=== PATIENT | female | born 1950 | race Caucasian/White ===

== ENCOUNTER 2017-07-05 11:00 | Inpatient (IN) ==
[2017-07-05] MEDS ORDERED: Pantoprazole 80 MG in 0.9 % Sodium Chloride 50 ML IVPB ONE (11:28)
[2017-07-05] MEDS ORDERED: *HR* Morphine 2 MG/ML SYRINGE IVP ONE (11:28)
--- NOTE | 2017-07-05 11:34 | Emergency Department Note ---
Disposition Clinical Impression: Melena, Right leg pain, Generalized weakness GI bleed Qualifiers: GI bleed type/associated pathology: melena Qualified Code(s): K92.1 - Melena Disposition: Admitted As Inpatient Condition: Fair Referrals: Suzy Esquivel [employer] [Primary Care Provider] - Forms: ED Satisfaction Letter GI Bleed HPI - General Chief complaint: ED GI Bleed Stated complaint: blood in stool/tired/pain in right leg Time Seen by Provider: 07/05/17 11:22 Source: patient Limitations: no limitations Nursing Notes Reviewed: Yes Vital Signs Reviewed: Yes - History of Present Illness HPI Narrative: Kandace Gates is a 66-year-old female presents to the emergency department with 3 primary complaints. First is decreased energy, second is bright red blood per rectum, and third is right sided leg pain. Patient has a history of catheterization and stent 3 weeks ago secondary to heart attack. She says her pain started in the right leg which is decidedly negative the From, a day or 2 ago. She is also noticed bright red blood per rectum every time she goes to the bathroom for the last 2 or 3 days. She says she is on an oral blood thinner. She denies fevers or chills. She denies chest pain or short of breath. Pt Subjective Complaint: blood on toilet paper, blood streaked stool Onset (ago): day(s) Consistency: intermittent Severity: none Improves with: nothing Worsens with: nothing Context: anticoagulant use Associated symptoms: Reports: none Treatments Prior to Arrival: none - Related Data Home Medications Medication Instructions Recorded Confirmed Escitalopram [Lexapro] 20 mg PO DAILY 06/15/17 07/05/17 Fluticasone/Salmeterol [Advair 1 puff IH BID 07/05/17 07/05/17 250-50 Diskus] Ranitidine HCl [Heartburn Relief] 150 mg PO DAILY 07/05/17 07/05/17 Previous Rx's Medication Instructions Recorded Aspirin 81 mg PO DAILY #30 tab.chew 06/17/17 Atorvastatin [Lipitor] 40 mg PO HS #30 tablet 06/17/17 Metoprolol XL (24 HR) Succ [Toprol 12.5 mg PO DAILY #15 tab.er.24h 06/17/17 Xl] Nitroglycerin 0.4 mg SL Q5MIN #30 tab.subl 06/17/17 Ticagrelor [Brilinta] 90 mg PO BID #60 tablet 06/17/17 Allergies Allergy/AdvReac Type Severity Reaction Status Date / Time No Known Allergies Allergy Verified 07/05/17 11:08 All systems ED: reviewed and negative except as stated. Constitutional: Reports: as per HPI Eyes: Reports: as per HPI ENT ED: Reports: epistaxis Respiratory: Reports: as per HPI Gastrointestinal: Reports: as per HPI Genitourinary: Reports: as per HPI Musculoskeletal: Reports: as per HPI Integumentary: Reports: as per HPI Neurological: Reports: as per HPI Psychiatric: Reports: as per HPI Past Medical History - Past Medical History Attestation: Yes The following information was validated with the patient. 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 - Social History Smoking Status: Current every day smoker Smokeless Tobacco Status: No Alcohol use: Reports: none Drug use: Reports: none Physical Exam - General Limitations: no limitations General appearance: alert - Head Head exam: atraumatic - Eye Eye exam: Present: normal appearance - ENT ENT exam: normal exam - Neck Neck exam: Present: normal inspection - Chest Chest inspection: Present: normal inspection - Respiratory Respiratory exam: Present: normal lung sounds bilaterally - Cardiovascular Cardiovascular exam: Present: regular rate, normal rhythm - Abdominal Exam Abdominal exam: Present: soft, Non-Tender - Rectal Exam Rectal exam: Present: normal inspection, normal rectal tone, heme (+) stool, black stool. Absent: hemorrhoids, mass, tenderness - Extremities Exam Extremities exam: Present: normal inspection, tenderness, other (H and has tenderness in the anterior henderson of the right leg this reproduces her pain and she does have a bruise on that area. She literally hurts over the areas of bruising. She has no swelling and no indications that there is a DVT there additionally she has distal pulses that are intact femoral pulses that are intact and she appears to have healed extraordinarily well from her catheterization injection point.) - Expanded Lower Extremity Exam Hip/Pelvis exam: Present: normal inspection - Neurological Exam Neurological exam: Present: alert, oriented X3 - Psychiatric Psychiatric exam: Present: normal affect, normal mood - Skin Skin exam: Present: warm, dry, intact Course Vital Signs Temperature 97.9 F 07/05/17 11:10 Pulse Rate 71 07/05/17 11:10 Respiratory Rate 20 07/05/17 11:10 Blood Pressure 103/62 07/05/17 11:10 O2 Sat by Pulse Oximetry 98 07/05/17 11:10 Temperature 97.9 F 07/05/17 11:10 Pulse Rate 58 07/05/17 14:36 Respiratory Rate 16 07/05/17 14:36 Blood Pressure 106/56 07/05/17 14:36 O2 Sat by Pulse Oximetry 94 07/05/17 14:36 Oxygen Delivery Oxygen Delivery Room Air GI Bleed - [facility] Narrative Medical decision making narrative: Patient's stool demonstrated melena. We will do workup for GI bleed including CT scan and start her on pantoprazole with a drip. Will admit to the hospitalist service I once workup is complete for final evaluation and treatment. CT scan revealed diverticulosis without diverticulitis. Laboratory testing shows that she has dropped her blood counts since her last test. She still is not low enough to require transfusion at this time. EKG shows no acute ischemic changes. Spoke to the hospitalist service to start arranging for admission, they requested discussing case with GI and cardiology. Cardiology recommended keeping the patient on Brilinta. GI was contacted and agreed to take the patient directly for scope. She was started on Protonix drip. Her blood pressure remained stable throughout her stay. Patient will be taken directly to the GI lab and then admitted the hospital afterwards. - Lab Data Lab results reviewed: Yes I reviewed the patient's lab results. Result diagrams: 07/05/17 11:52 07/05/17 11:52 Lab Results 07/05/17 07/05/17 07/05/17 Range/Units 11:29 11:52 11:52 WBC 7.0 (4.3-11.1) K/mcL RBC 2.90 L (3.82-4.97) M/mcL Hgb 8.8 L (11.5-15.4) g/dL Hct 26.8 L (35.3-44.9) % MCV 92.4 (83.0-100.0) fL MCH 30.3 (28.0-33.3) pg MCHC 32.8 (31.6-35.5) g/dL RDW 12.7 (11.5-14.5) % Plt Count 500 H (140-400) K/mcL MPV 9.6 (9.4-12.4) fL Immature Gran % 0.4 (0-4) % Seg Neutrophils % 55.3 % Lymphocytes % 31.4 % Monocytes % 10.1 % Eosinophils % 1.7 % Basophils % 1.1 % Neutrophils # 3.9 (1.6-8.9) K/mcL Lymphocytes # 2.2 (0.6-4.6) K/mcL Monocytes # 0.7 (0.0-1.3) K/mcL Eosinophils # 0.1 (0.0-0.6) K/mcL Basophils # 0.1 (0.0-0.2) K/mcL PT 12.0 (9.4-12.1) Seconds INR 1.1 APTT 34.9 (26.0-36.0) Seconds Sodium (136-145) mEq/L Potassium (3.5-5.1) mEq/L Chloride (98-107) mEq/L Carbon Dioxide (23-29) mEq/L BUN (8-23) mg/dL Creatinine (0.60-1.20) mg/dL Est GFR ( Amer) (> 60) Est GFR (Non-Af Amer) (> 60) BUN/Creatinine Ratio (6-26) Glucose (70-105) mg/dL Calculated Osmolality (280-300) Lactic Acid (0.5-2.2) mmol/L Calcium (8.6-10.3) mg/dL Total Bilirubin (0.3-1.0) mg/dL AST (13-39) Units/L ALT (7-52) Units/L Alkaline Phosphatase (34-104) Units/L Troponin I (< 0.04) ng/mL Serum Total Protein (6.4-8.9) g/dL Albumin (3.5-5.7) g/dL Globulin (2.4-3.5) g/dL Albumin/Globulin Ratio (1.1-2.2) Lipase (11-82) Units/L Stool Occult Blood Positive A (Negative) Blood Type Antibody Screen 07/05/17 07/05/17 07/05/17 Range/Units 11:52 11:52 11:52 WBC (4.3-11.1) K/mcL RBC (3.82-4.97) M/mcL Hgb (11.5-15.4) g/dL Hct (35.3-44.9) % MCV (83.0-100.0) fL MCH (28.0-33.3) pg MCHC (31.6-35.5) g/dL RDW (11.5-14.5) % Plt Count (140-400) K/mcL MPV (9.4-12.4) fL Immature Gran % (0-4) % Seg Neutrophils % % Lymphocytes % % Monocytes % % Eosinophils % % Basophils % % Neutrophils # (1.6-8.9) K/mcL Lymphocytes # (0.6-4.6) K/mcL Monocytes # (0.0-1.3) K/mcL Eosinophils # (0.0-0.6) K/mcL Basophils # (0.0-0.2) K/mcL PT (9.4-12.1) Seconds INR APTT (26.0-36.0) Seconds Sodium 130 L (136-145) mEq/L Potassium 4.2 (3.5-5.1) mEq/L Chloride 100 (98-107) mEq/L Carbon Dioxide 25 (23-29) mEq/L BUN 15 (8-23) mg/dL Creatinine 0.66 (0.60-1.20) mg/dL Est GFR ( Amer) > 60 (> 60) Est GFR (Non-Af Amer) > 60 (> 60) BUN/Creatinine Ratio 23 (6-26) Glucose 96 (70-105) mg/dL Calculated Osmolality 271 L (280-300) Lactic Acid 0.9 (0.5-2.2) mmol/L Calcium 8.7 (8.6-10.3) mg/dL Total Bilirubin 0.3 (0.3-1.0) mg/dL AST 12 L (13-39) Units/L ALT 9 (7-52) Units/L Alkaline Phosphatase 188 H (34-104) Units/L Troponin I < 0.03 (< 0.04) ng/mL Serum Total Protein 6.7 (6.4-8.9) g/dL Albumin 3.6 (3.5-5.7) g/dL Globulin 3.1 (2.4-3.5) g/dL Albumin/Globulin Ratio 1.2 (1.1-2.2) Lipase 14 (11-82) Units/L Stool Occult Blood (Negative) Blood Type Antibody Screen 07/05/17 Range/Units 11:52 WBC (4.3-11.1) K/mcL RBC (3.82-4.97) M/mcL Hgb (11.5-15.4) g/dL Hct (35.3-44.9) % MCV (83.0-100.0) fL MCH (28.0-33.3) pg MCHC (31.6-35.5) g/dL RDW (11.5-14.5) % Plt Count (140-400) K/mcL MPV (9.4-12.4) fL Immature Gran % (0-4) % Seg Neutrophils % % Lymphocytes % % Monocytes % % Eosinophils % % Basophils % % Neutrophils # (1.6-8.9) K/mcL Lymphocytes # (0.6-4.6) K/mcL Monocytes # (0.0-1.3) K/mcL Eosinophils # (0.0-0.6) K/mcL Basophils # (0.0-0.2) K/mcL PT (9.4-12.1) Seconds INR APTT (26.0-36.0) Seconds Sodium (136-145) mEq/L Potassium (3.5-5.1) mEq/L Chloride (98-107) mEq/L Carbon Dioxide (23-29) mEq/L BUN (8-23) mg/dL Creatinine (0.60-1.20) mg/dL Est GFR ( Amer) (> 60) Est GFR (Non-Af Amer) (> 60) BUN/Creatinine Ratio (6-26) Glucose (70-105) mg/dL Calculated Osmolality (280-300) Lactic Acid (0.5-2.2) mmol/L Calcium (8.6-10.3) mg/dL Total Bilirubin (0.3-1.0) mg/dL AST (13-39) Units/L ALT (7-52) Units/L Alkaline Phosphatase (34-104) Units/L Troponin I (< 0.04) ng/mL Serum Total Protein (6.4-8.9) g/dL Albumin (3.5-5.7) g/dL Globulin (2.4-3.5) g/dL Albumin/Globulin Ratio (1.1-2.2) Lipase (11-82) Units/L Stool Occult Blood (Negative) Blood Type A POSITIVE Antibody Screen NEGATIVE - Radiology Data Radiology results reviewed: Yes I reviewed the patient's radiology results. - EKG Data EKG attestation: Yes I reviewed and interpreted this EKG. EKG shows normal: sinus rhythm Rate: normal Rhythm: NSR When compared to previous EKG there are: changes noted (Only change that is appreciably noted is an inverted T-wave in lead 3. Remainder of EKG when compared with an EKG from June 15 of this year is essentially unremarkable. I do not see any ST segment elevation or depression that is overly concerning. Additionally this changes not necessarily surprising considering that she just had a catheterization.), other Interpretation: no acute changes Critical Care Time Critical Care Time: Yes Total Critical Care Time: 35 Attestation: Critical care time 35 minutes managing patient's GI bleed.
[2017-07-05] MEDS ORDERED: Pantoprazole 40 MG in 0.9 % Sodium Chloride Mini Bag 100 ML IVC SCH (11:45)
[2017-07-05 12:02] LABS: Basophils # 0.1 K/mcL (0.0-0.2); Basophils % 1.1 %; Eosinophils # 0.1 K/mcL (0.0-0.6); Eosinophils % 1.7 %; Hematocrit 26.8 % (35.3-44.9); Hemoglobin 8.8 g/dL (11.5-15.4); Immature Granulocytes % 0.4 % (0-4); Lymphocytes # 2.2 K/mcL (0.6-4.6); Lymphocytes % 31.4 %; Mean Corpuscular HGB Conc 32.8 g/dL (31.6-35.5); Mean Corpuscular Hemoglobin 30.3 pg (28.0-33.3); Mean Corpuscular Volume 92.4 fL (83.0-100.0); Mean Platelet Volume 9.6 fL (9.4-12.4); Monocytes # 0.7 K/mcL (0.0-1.3); Monocytes % 10.1 %; Neutrophils # 3.9 K/mcL (1.6-8.9); Platelet Count 500 K/mcL (140-400); Red Cell Distribution Width 12.7 % (11.5-14.5); Segmented Neutrophils % 55.3 %
[2017-07-05 12:06] LABS: INR 1.1
[2017-07-05 12:08] LABS: Activated Partial Thrombo Time 34.9 Seconds (26.0-36.0)
[2017-07-05 12:20] LABS: Alanine Aminotransferase 9 Units/L (7-52); Albumin 3.6 g/dL (3.5-5.7); Albumin/Globulin Ratio 1.2 (1.1-2.2); Alkaline Phosphatase 188 Units/L (34-104); Aspartate Amino Transferase 12 Units/L (13-39); BUN/Creatinine Ratio 23 (6-26); Bilirubin,Total 0.3 mg/dL (0.3-1.0); Blood Urea Nitrogen 15 mg/dL (8-23); Calcium 8.7 mg/dL (8.6-10.3); Carbon Dioxide 25 mEq/L (23-29); Chloride 100 mEq/L (98-107); Globulin 3.1 g/dL (2.4-3.5); Glucose 96 mg/dL (70-105); Lipase 14 Units/L (11-82); Osmolality,Calculated 271 (280-300); Potassium 4.2 mEq/L (3.5-5.1); Sodium 130 mEq/L (136-145); Total Protein 6.7 g/dL (6.4-8.9); eGFR For African Americans > 60 (> 60); eGFR For Non-African Americans > 60 (> 60)
[2017-07-05] MEDS: Pantoprazole 80 MG in 0.9 % Sodium Chloride 250 ML IVC SCH (12:35)
--- NOTE | 2017-07-05 14:54 | Anesthesia Evaluation PreOp ---
Date of Encounter: 07/05/17 Time of Encounter: 14:52 - Past History Planned Operation: EGD Cardiac History: HTN, Cardiac Stent (3 weeks ago) Pulmonary History: Smoker (1.5ppd x 35 Years) THIRD HELPER History: Denies Any Significant HX Other Medical History: Denies Any Significant HX Anesthesia History: Past Anesthesia : No Alcohol Use: none Drug use: none Medications and Allergies Escitalopram [Lexapro] 20 mg PO DAILY 06/15/17 [History] Aspirin 81 mg PO DAILY #30 tab.chew 06/17/17 [Rx] Atorvastatin [Lipitor] 40 mg PO HS #30 tablet 06/17/17 [Rx] Metoprolol XL (24 HR) Succ [Toprol Xl] 12.5 mg PO DAILY #15 tab.er.24h 06/17/17 [Rx] Nitroglycerin 0.4 mg SL Q5MIN #30 tab.subl 06/17/17 [Rx] Ticagrelor [Brilinta] 90 mg PO BID #60 tablet 06/17/17 [Rx] Fluticasone/Salmeterol [Advair 250-50 Diskus] 1 puff IH BID 07/05/17 [History] Ranitidine HCl [Heartburn Relief] 150 mg PO DAILY 07/05/17 [History] 3 Allergy/AdvReac Type Severity Reaction Status Date / Time No Known Allergies Allergy Verified 07/05/17 11:08 - Meds/Allergy Pre-op Review Medications Reviewed: Yes Allergies Reviewed: Yes Beta Blockers on Current Med List: Yes If Beta Blockers taken, Date/Time (Last Dose taken): 09:00 07/05/2017 Anesthesia Results - Labs 07/05/17 11:52 07/05/17 11:52 Echocardiogram Name: Kandace Gates Date of Study: 06/16/2017 EV/EV echocardiogram Impressions: LVEF 60%. Indeterminate diastolic function. Equivocal E/A, abnormal TD velocity. Normal right ventricular structure and function. Mild mitral regurgitation. Mild tricuspid regurgitation. Mild pulmonary hypertension. There is a trivial pericardial effusion present located along the inferior border of the RV. No tamponade. LEFT HEART CATH PCI of Acute CA Indications: STEMI Impressions: There is severe one vessel coronary artery disease. The left ventricle is normal and has normal contractility EF 55% Patient had successful PTCA/Drug-Eluting Stent placement in the proximal and mid RCA. - Imaging EKG: report reviewed (SINUS RHYTHM WITH SINUS ARRHYTHMIA MODERATE ST DEPRESSION) Anesthesia Exam O2 Sat Height 1.63 m Weight 59.148 kg O2 Sat by Pulse Oximetry 94 O2 Sat by Pulse Oximetry 95 O2 Sat by Pulse Oximetry 98 Vital Signs Temp Pulse Resp BP Pulse Ox 97.9 F 71 20 103/62 98 07/05/17 11:10 07/05/17 11:10 07/05/17 11:10 07/05/17 11:10 07/05/17 11:10 Height: 5'4'' Weight: 130# NPO (# of Hours): > 8 hrs Pain Scale: 0 Pain Scale Used: Numeric (1 - 10) - HEENT Pupil (Motor): Pupils equal, EOMI Mallampati: II Teeth: Missing Denture Type: Upper: Complete Oral Opening: Greater than 3 - THIRD HELPER LOC: Oriented THIRD HELPER Motor: Normal RUE, Normal LUE, Normal RLE, Normal LLE, Normal Face THIRD HELPER Sensory: Normal: RUE, LUE, RLE, LLE, Face - Cardiac Rhythm: Regular Murmur: None JVD: No Carotid Bruit: No - Pulmonary Breath Sounds: bilateral Clear Respiratory Effort: Symmetrical Anesthesia Assess/Plan ASA Score: 3 Modified Zaki Scale for Level of Consciousness: Cooperative, oriented, and tranquil Anesthetic Plan: MAC Autologous Blood: Yes Monitoring Plan: Standard Monitors Recovery Plan: Other
--- NOTE | 2017-07-05 14:58 | Gastroenterology Consult Note ---
Date of Encounter: 07/05/17 Time of Encounter: 14:30 - Assessment and plan (1) Rectal bleeding Current Visit: Yes Status: Acute Assessment and plan: In This patient with the recent myocardial infarction, which status post PCI 2 weeks ago on aspirin and Brilinta. Denies any epigastric pain. Bleeding is suspicious for a upper GI source but will do an EGD and if negative then she will need a colonoscopy. Meanwhile we will follow H&H. - Time Spent With Patient Total time spent is greater than 50% in coordination of care (as documented) at patient's floor/unit and/or counseling patient: GI History of Present Illness - Consult Narrative Reason for consult: GI bleed History of present illness: Ms. Gates is a 66 year old female with the recent VA status post cardiac catheter with stenting. Patient had Inferior ST elevation VA; S/P Proximal and Distal RCA stenting. On ASA, received loading dose 180 mg Brilinta hortensia-PCI, on maintenance dose of Brilinta 90mg daily along with aspirin daily. Per patient she notice red blood per rectum many episode on she was supposed to have a CBC done next day as outpatient but could not be done and yesterday she noticed 1 more episode of bleeding per rectum since then no more bleeding per rectum .Today she felt very weak and tired and came to the ER and was found to have a low hemoglobin. Denies any abdominal pain no chest pain or shortness of breath Past Med Surg Social Fam HX - Past Medical History Medical history: hypertension, myocardial infarction Psychiatric history: anxiety - Social History Smoking Status: Current every day smoker Smokeless Tobacco Status: No Alcohol use: none Drug use: none Review of Systems: GI: as per [place] GENERAL: denies fever, has some chills but per the patient she always feel cold EYES: denies yellow discoloration ENT: denies pain with swallowing or difficulty swallowing CARDIO: denies chest pain, palpitations RESP: No Shortness of breath with exertion : denies change in color of urine NEURO: No focal weakness but did had generalized weakness on presentation HEME: Denies any bruising MS: denies joint pain, joint swelling or back pain. DERM: denies rash or itching PSYCH: Denies history of anxiety or depression - Constitutional Vitals: Temp Pulse Resp BP Pulse Ox 97.9 F 58 16 106/56 94 07/05/17 11:10 07/05/17 14:36 07/05/17 14:36 07/05/17 14:36 07/05/17 14:36 - Head Head exam: Present: atraumatic - Eye Eye exam: Present: sclera anicteric - Respiratory Additional comments: Bilateral good air entry did had some mild wheezing - Cardiovascular Cardiovascular exam: Present: +S1, +S2 Additional comments: Rhythm is regular - GI/Abdominal Additional comments: Soft, No focal tenderness no guarding or rigidity - Extremities Exam Additional comments: No clubbing cyanosis or edema. - Neurological Exam Neurological exam: Present: oriented X3 - Skin Skin exam: Present: dry, warm Results - Labs CBC & Chem 7: 07/05/17 11:52 07/05/17 11:52 Labs: Last Result Calcium 8.7 mg/dL (8.6-10.3) 07/05/17 11:52 Troponin I < 0.03 ng/mL (< 0.04) 07/05/17 11:52 Stool Occult Blood Positive (Negative) A 07/05/17 11:29 Entire Visit Hgb 8.8 g/dL (11.5-15.4) L 07/05/17 11:52 Hct 26.8 % (35.3-44.9) L 07/05/17 11:52 PT 12.0 Seconds (9.4-12.1) 07/05/17 11:52 Total Bilirubin 0.3 mg/dL (0.3-1.0) 07/05/17 11:52 AST 12 Units/L (13-39) L 07/05/17 11:52 ALT 9 Units/L (7-52) 07/05/17 11:52 Lipase 14 Units/L (11-82) 07/05/17 11:52 - ABG ABG results: PT/INR, D-dimer PT 12.0 Seconds (9.4-12.1) 07/05/17 11:52 - Impressions Impressions Chest X-Ray 07/05/17 11:28 IMPRESSION: Stable portable study. D/ / Sarahi Harmon Cha, MD / Sarahi Harmon Cha, MD Interpreting Provider: Sarahi Harmon Cha, MD Abdomen/Pelvis CT 07/05/17 11:30 IMPRESSION: 1. No acute process in the abdomen or pelvis. 2. Moderate sigmoid diverticulosis without acute diverticulitis. 3. Atherosclerotic and ectatic abdominal aorta. 4. Small pericardial effusion and/or pericardial thickening. D/ / 07/05/2017 13:00:21 Jeanine Tan / yohan Interpreting Provider: Jeanine Tan Consult Discharge Plan - Plan Referrals: Suzy Esquivel, PLANNING CONSULTANT [Primary Care Provider] -
--- NOTE | 2017-07-05 15:05 | Internal Med History&Physical ---
Date of Encounter: 07/05/17 Time of Encounter: 15:04 Assessment and Plan (1) GI bleed Status: Acute ASSESSMENT: - GI bleeding DD *Gastroenteritis *Gastritis *PUD *Esophageal varices *IBD PLAN: - IVF - NPO - H/H now and q 6 hr - Type and screen 2 U PRBC - Protonix 40 mg IV QD/BID - GI consult-> EGD/Colonoscopy - O2 to keep SpO2 > 92% - CBCD, BMP, INR/PTT in AM - Compression stocking BLE for DVT prophylaxis Qualifiers: GI bleed type/associated pathology: unspecified gastrointestinal hemorrhage type Qualified Code(s): K92.2 - Gastrointestinal hemorrhage, unspecified (2) Hypertension Status: Acute We will continue home medication Qualifiers: Hypertension type: essential hypertension Qualified Code(s): I10 - Essential (primary) hypertension (3) Hyperlipidemia Status: Acute We will continue home medication, obtain fasting lipid profile in a.m. Qualifiers: Hyperlipidemia type: unspecified Qualified Code(s): E78.5 - Hyperlipidemia , unspecified (4) CAD (coronary artery disease) Status: Acute We will continue home meds, trend cardiac enzymes for possible demand ischemia ischemia, cardiology was contacted and they recommended to continue blood thinner despite of the GI bleeding givings a recent history of angiogram angioplasty and stent placement. Qualifiers: Coronary Disease-Associated Artery/Lesion type: [place] artery [place] vs. transplanted heart: [place] heart Associated angina: without angina Qualified Code(s): I25.10 - Atherosclerotic heart disease of [place] coronary artery without angina pectoris (5) Generalized weakness Status: Acute PT , OT (6) Tobacco abuse Status: Acute was counselled (7) DVT prophylaxis Status: Acute Internal Medicine - H&P: HPI Chief complaint: GI bleed Admitted From: Home Plans for Post Hospital Care: Home History of present illness: Ms. Gates is a 66 year old female with the recent AK status post cardiac catheter with stenting. Patient had Inferior ST elevation AK; S/P Proximal and Distal RCA stenting. On ASA, received loading dose 180 mg Brilinta hortensia-PCI, on maintenance dose of Brilinta 90mg daily along with aspirin daily. Per patient she notice red blood per rectum many episode on she was supposed to have a CBC done next day as outpatient but could not be done and yesterday she noticed 1 more episode of bleeding per rectum since then no more bleeding per rectum .Today she felt very weak and tired and came to the ER and was found to have a low hemoglobin. Denies any abdominal pain no chest pain or shortness of breath Past Med Surg Social Fam HX - Past Medical History Medical history: hypertension, myocardial infarction Psychiatric history: anxiety - Social History Smoking Status: Current every day smoker Smokeless Tobacco Status: No Alcohol use: none Drug use: none Internal Medicine - H&P: Meds Escitalopram [Lexapro] 20 mg PO DAILY 06/15/17 [History] Aspirin 81 mg PO DAILY #30 tab.chew 06/17/17 [Rx] Atorvastatin [Lipitor] 40 mg PO HS #30 tablet 06/17/17 [Rx] Metoprolol XL (24 HR) Succ [Toprol Xl] 12.5 mg PO DAILY #15 tab.er.24h 06/17/17 [Rx] Nitroglycerin 0.4 mg SL Q5MIN #30 tab.subl 06/17/17 [Rx] Ticagrelor [Brilinta] 90 mg PO BID #60 tablet 06/17/17 [Rx] Fluticasone/Salmeterol [Advair 250-50 Diskus] 1 puff IH BID 07/05/17 [History] Ranitidine HCl [Heartburn Relief] 150 mg PO DAILY 07/05/17 [History] Omeprazole [PriLOSEC] 40 mg PO DAILY #30 cap 07/08/17 [Rx] Pantoprazole [Protonix] 40 mg IVP Q12HR vial 07/08/17 [Rx] 3 Allergy/AdvReac Type Severity Reaction Status Date / Time No Known Allergies Allergy Verified 07/05/17 11:08 All Systems PM: A 10-system review of systems was performed and is negative for pertinent findings except as documented above in the HPI. - Constitutional Constitutional: weakness, no chills, no fever(s), no night sweats - Cardiovascular Cardiovascular ROS IM: no chest pain, no diaphoresis, no dyspnea, no lightheadedness, no palpitations, no syncope - Respiratory Respiratory: no cough, no dyspnea, no wheezing, no excessive phlegm production - Gastrointestinal Gastrointestinal: hematochezia, melena, no abdominal pain, no diarrhea, no hematemesis, no nausea, no vomiting - Neurological Neurological ROS: no confusion, no convulsions, no focal weakness, no numbness, no tingling, no tremor(s) - Constitutional Vitals: Temp Pulse Resp BP Pulse Ox 97.9 F 58 16 106/56 94 07/05/17 11:10 07/05/17 14:36 07/05/17 14:36 07/05/17 14:36 07/05/17 14:36 Internal Med - H&P Results - Labs CBC & Chem 7: 07/08/17 06:13 07/08/17 06:13 Labs: Short CBC 07/05/17 Range/Units 11:52 WBC 7.0 (4.3-11.1) K/mcL Hgb 8.8 L (11.5-15.4) g/dL Hct 26.8 L (35.3-44.9) % Plt Count 500 H (140-400) K/mcL Neutrophils # 3.9 (1.6-8.9) K/mcL BMP 07/05/17 11:52 Sodium 130 L Potassium 4.2 Chloride 100 Carbon Dioxide 25 BUN 15 Creatinine 0.66 Glucose 96 Calcium 8.7 Cardiac Enzymes 07/05/17 Range/Units 11:52 Troponin I < 0.03 (< 0.04) ng/mL Liver Function 07/05/17 Range/Units 11:52 Total Bilirubin 0.3 (0.3-1.0) mg/dL AST 12 L (13-39) Units/L ALT 9 (7-52) Units/L Alkaline Phosphatase 188 H (34-104) Units/L Albumin 3.6 (3.5-5.7) g/dL - Impressions ITS Impressions Chest X-Ray 07/05/17 11:28 IMPRESSION: Stable portable study. D/ / Sarahi Harmon Cha, MD / Sarahi Harmon Cha, MD Interpreting Provider: Sarahi Harmon Cha, MD Abdomen/Pelvis CT 07/05/17 11:30 IMPRESSION: 1. No acute process in the abdomen or pelvis. 2. Moderate sigmoid diverticulosis without acute diverticulitis. 3. Atherosclerotic and ectatic abdominal aorta. 4. Small pericardial effusion and/or pericardial thickening. D/ /05/2017 13:00:21 Jeanine Tan / yohan Interpreting Provider: Jeanine Tan - Attending Attestation I personally and independently interviewed and examined the patient, and I reviewed the patient's medical record. I am in agreement with the residents assessment and proposed treatment plan. I discussed my findings and recommendation with the patient and answer his questions. The patient's medical records were edited to accurately reflect this encounter.
[2017-07-05] MEDS ORDERED: *HR* Propofol 200 MG/20 ML VIAL IVP ONE (15:13)
[2017-07-05] MEDS ORDERED: Ringers Solution, Lactated 1,000 ML IVC SCH (15:15)
[2017-07-05] MEDS ORDERED: SODIUM CHLORIDE/NAHCO3/KCL/PEG 4,000 ML SOLN.RECON PO ONE (15:31)
--- NOTE | 2017-07-05 15:44 | Anesthesia Evaluation Post Op ---
Date of Encounter: 07/05/17 Time of Encounter: 15:43 - Vital Signs Vital Signs: Vital Signs/O2 Sat, Most Current Temp Pulse Resp BP Pulse Ox 98.6 F 60 16 990/54 100 07/05/21 15:35 07/05/17 15:35 07/05/17 15:35 07/05/17 15:35 07/05/17 15:35 - Lungs Lungs: Clear Ascult./Percussion - Airway Airway: Non-obstructed - Cardiovascular Regular Rate - Mental Status Mental Status: Alert & Oriented, Answers Appropriately - Pain Pain Scale: 0 Pain Scale used: Numeric (1 - 10) - Nausea Vomiting Nausea Vomiting: Not Present - Hydration Hydration: NPO, Has not voided - Discharge PostOp Status: Transfer Patient to floor
[2017-07-05] MEDS: *HR* Ticagrelor 90 MG TABLET PO SCH (21:17)
[2017-07-05 22:51] LABS: Basophils % 0.5 %; Eosinophils # 0.1 K/mcL (0.0-0.6); Eosinophils % 1.7 %; Hematocrit 26.3 % (35.3-44.9); Hemoglobin 8.5 g/dL (11.5-15.4); Immature Granulocytes % 0.5 % (0-4); Lymphocytes # 2.9 K/mcL (0.6-4.6); Lymphocytes % 35.7 %; Mean Corpuscular HGB Conc 32.3 g/dL (31.6-35.5); Mean Corpuscular Hemoglobin 30.4 pg (28.0-33.3); Mean Corpuscular Volume 93.9 fL (83.0-100.0); Mean Platelet Volume 9.5 fL (9.4-12.4); Monocytes # 0.4 K/mcL (0.0-1.3); Monocytes % 5.2 %; Neutrophils # 4.5 K/mcL (1.6-8.9); Platelet Count 472 K/mcL (140-400); Red Cell Distribution Width 12.5 % (11.5-14.5); Segmented Neutrophils % 56.4 %
[2017-07-06] MEDS: Pantoprazole 80 MG in 0.9 % Sodium Chloride 250 ML IVC SCH ×3 (00:10→14:03)
[2017-07-06] MEDS ORDERED: Acetaminophen 325 MG TABLET PO PRN (00:20)
[2017-07-06] MEDS: *HR* OxyCODONE Immed Rel 5 MG TABLET PO PRN ×2 (00:33→11:05)
[2017-07-06 05:35] LABS: Basophils # 0.1 K/mcL (0.0-0.2); Basophils % 0.8 %; Eosinophils # 0.1 K/mcL (0.0-0.6); Eosinophils % 1.8 %; Hematocrit 24.6 % (35.3-44.9); Hemoglobin 7.8 g/dL (11.5-15.4); Immature Granulocytes % 0.5 % (0-4); Lymphocytes # 2.2 K/mcL (0.6-4.6); Lymphocytes % 28.5 %; Mean Corpuscular HGB Conc 31.7 g/dL (31.6-35.5); Mean Corpuscular Hemoglobin 29.7 pg (28.0-33.3); Mean Corpuscular Volume 93.5 fL (83.0-100.0); Monocytes # 0.7 K/mcL (0.0-1.3); Monocytes % 8.5 %; Neutrophils # 4.6 K/mcL (1.6-8.9); Platelet Count 451 K/mcL (140-400); Red Blood Count 2.63 M/mcL (3.82-4.97); Red Cell Distribution Width 12.6 % (11.5-14.5); Segmented Neutrophils % 59.9 %
[2017-07-06 05:38] LABS: INR 1.1; Prothrombin Time 11.9 Seconds (9.4-12.1)
[2017-07-06 05:41] LABS: Activated Partial Thrombo Time 32.8 Seconds (26.0-36.0)
[2017-07-06] MEDS ORDERED: Propofol 500 MG/50 ML INFUS..BTL ONE (07:29)
[2017-07-06] MEDS ORDERED: Simethicone 40 MG/0.6 ML MLS IR ONE (07:33)
[2017-07-06] MEDS ORDERED: Lidocaine -MPF 2% 2 ML VIAL ONE (07:34)
[2017-07-06] MEDS ORDERED: *HR* Phenylephrine 10 MG/ML VIAL ONE (08:28)
[2017-07-06] MEDS ORDERED: NON-FORMULARY MEDICATION 1 EACH EACH (Ranitidine Hcl [Heartburn Relief] 150 MG) PO SCH (09:00)
[2017-07-06] MEDS: Metoprolol XL (24 HR) Succ 25 MG TAB.ER.24H PO SCH (09:17)
[2017-07-06] MEDS: *HR* Ticagrelor 90 MG TABLET PO SCH ×2 (09:17→20:17)
[2017-07-06] MEDS: Aspirin 81 MG TAB.CHEW PO SCH (09:17)
--- NOTE | 2017-07-06 10:02 | Internal Med Progress Note ---
Date of Encounter: 07/06/17 Time of Encounter: 09:58 - Assessment and plan (1) GI bleed Current Visit: Yes Status: Acute Assessment and plan: EGD done today, GI following, appreciate recommendations. Cardiology consulted in regards to DAPT use in patient since she is having s/s of GIB but is also high risk for MN since she had one 3 weeks ago. Will trend H&H and transfuse as needed, continue protonix drip. Awaiting EGD results. Qualifiers: GI bleed type/associated pathology: unspecified gastrointestinal hemorrhage type Qualified Code(s): K92.2 - Gastrointestinal hemorrhage, unspecified (2) Hypertension Current Visit: No Status: Acute Qualifiers: Hypertension type: essential hypertension Qualified Code(s): I10 - Essential (primary) hypertension (3) Hyperlipidemia Current Visit: No Status: Acute Qualifiers: Hyperlipidemia type: unspecified Qualified Code(s): E78.5 - Hyperlipidemia , unspecified - Subjective Interval history: Patient presented for BRBPR for past 3 days, had recent MN 3 weeks ago requiring catheterization and DAPT. She denies any recent trauma, red foods. FOBT + here, has been hemodynamically stable. Her baseline hemoglobin appears to be 10-11 in the past month. On admission yesterday her level was 8.8, trending she is now 7.8. She denies chest pain, shortness of breath, n/v. She admits to BRBPR. Endoscopy done earlier this morning results are pending. Cardiology was consulted in regards to DAPT use since she is high risk of cardiac events but also GIB. - Constitutional Vitals: Temp Pulse Resp BP Pulse Ox 98.3 F 67 16 108/58 98 07/06/17 09:15 07/06/17 09:15 07/06/17 09:15 07/06/17 09:15 07/06/17 09:15 - Eye Additional comments: Conjunctival pallor - Respiratory Respiratory exam: Present: CTAB. Absent: accessory muscle use, rales, rhonchi, wheezes - Cardiovascular Cardiovascular exam: Present: RRR, +S1, +S2. Absent: diastolic murmur, gallop, rubs, systolic murmur - GI/Abdominal GI/Abdominal exam: Present: normal bowel sounds, soft, no peritoneal signs. Absent: distended, tenderness Internal Medicine: Result - Labs CBC & Chem 7: 07/06/17 04:13 07/05/17 11:52 Labs: Short CBC 07/05/17 07/06/17 Range/Units 22:38 04:13 WBC 8.0 7.6 (4.3-11.1) K/mcL Hgb 8.5 L 7.8 L (11.5-15.4) g/dL Hct 26.3 L 24.6 L (35.3-44.9) % Plt Count 472 H 451 H (140-400) K/mcL Neutrophils # 4.5 4.6 (1.6-8.9) K/mcL - ABG Interpretation ABG results: PT/INR, D-dimer PT 11.9 Seconds (9.4-12.1) 07/06/17 04:13 Consult Discharge Plan - Plan Referrals: Suzy Esquivel, COMPLIANCE REVIEW OFFICER [Primary Care Provider] -
--- NOTE | 2017-07-06 10:32 | Cardiology Consult Note ---
<Milena Bahena Abraham - Last Filed: 07/06/17 10:33> Date of Encounter: 07/06/17 Time of Encounter: 08:30 Assessment and Plan (1) Melena Current Visit: Yes Status: Acute Per cardiology: -Hemoglobin today 7.8. -S/p endoscopy with GI. -Management per primary and GI services. (2) CAD (coronary artery disease) Current Visit: Yes Status: Acute Per cardiology: -Known CAD s/p STEMI 06/15/17 with GERMAIN placed to proximal and mid RCA. -Denies current chest pain. -ECG with no acute changes. -Troponin negative. -TTE 06/2017 with LVEF preserved, no segmental wall motion abnormalities. -On asa, statin, beta paula, and brilinta. -Now with acute GI bleed. Patient will need to continue dual anti-platelet therapy uninterrupted for at least one year. -Continue current medical therapy. Continue dual anti-platelet therapy uninterrupted for at least one year. -Patient has follow up with [facility]. -Anticipate cardiology sign off. Qualifiers: Coronary Disease-Associated Artery/Lesion type: [place] artery [place] vs. transplanted heart: [place] heart Associated angina: without angina Qualified Code(s): I25.10 - Atherosclerotic heart disease of [place] coronary artery without angina pectoris Discussion w patient/family: The assessment and plan as outlined above was discussed with the patient who expressed understanding and agreement. All questions were answered. Thank you for involving us in the care of your patient. Please call with any questions. Discussed and reviewed with . History of Present Illness Consult date: 07/05/17 Requesting physician: Saroj Manzano Consult reason: acute GI bleed, recent SC Chief complaint: blood in stool History of present illness: Ms. Gates is a 66 year old female with a relevant past medical history of recent STEMI 06/15/17 with stenting, HTN, hyperlipidemia. Patient presented to [facility] with complaints of blood in stool. Patient with recent STEMI with GERMAIN placed and is on dual anti-platelet therapy. Patient denies chest pain or shortness of breath. Patient is s/p endoscopy with GI. Past Med Surg Social Fam HX - Past Medical History Attestation: Yes The following information was validated with the patient. Source: patient, old records reviewed Medical history: coronary artery disease, hyperlipidemia, hypertension, myocardial infarction Psychiatric history: anxiety - Social History Smoking Status: Current every day smoker Smokeless Tobacco Status: No Alcohol use: none Drug use: none Medications and Allergies Escitalopram [Lexapro] 20 mg PO DAILY 06/15/17 [History] Aspirin 81 mg PO DAILY #30 tab.chew 06/17/17 [Rx] Atorvastatin [Lipitor] 40 mg PO HS #30 tablet 06/17/17 [Rx] Metoprolol XL (24 HR) Succ [Toprol Xl] 12.5 mg PO DAILY #15 tab.er.24h 06/17/17 [Rx] Nitroglycerin 0.4 mg SL Q5MIN #30 tab.subl 06/17/17 [Rx] Ticagrelor [Brilinta] 90 mg PO BID #60 tablet 06/17/17 [Rx] Fluticasone/Salmeterol [Advair 250-50 Diskus] 1 puff IH BID 07/05/17 [History] Ranitidine HCl [Heartburn Relief] 150 mg PO DAILY 07/05/17 [History] 3 Allergy/AdvReac Type Severity Reaction Status Date / Time No Known Allergies Allergy Verified 07/05/17 11:08 All Systems Review: A 10-system review of systems was performed and is negative for pertinent findings except as documented above in the HPI. - Cardiovascular Cardiovascular: as per HPI - Gastrointestinal Gastrointestinal: melena Physical Examination Vital Signs, Last 4 Hours Temp Pulse Resp BP Pulse Ox 07/06/17 10:06 75 16 97/51 99 07/06/17 09:15 98.3 F 67 16 108/58 98 07/06/17 07:42 97.9 F 70 16 106/54 96 General: Conversant, No Apparent Distress HEENT: Atraumatic, Normocephaly, Mucus Membranes Moist Neck: No JVD, Normal carotid pulses Cardiac: Reg Rate and Rhythm, Normal S1 and S2, No Murmur Lungs: Normal Breath Sounds, No Wheeze, Rales, Rhonchi Neuro: Alert and responsive, No focal deficits noted Abdomen: Soft, Non-Tender Skin: No rashes noted on visualized skin Musculoskeletal: No Chest Wall Tenderness Extremities: No Clubbing, No Cyanosis, No Edema, Normal Pulses Results 07/06/17 04:13 07/05/17 11:52 Lab Results Impressions Chest X-Ray 07/05/17 11:28 IMPRESSION: Stable portable study. D/ / Sarahi Harmon Cha, MD / Sarahi Harmon Cha, MD Interpreting Provider: Sarahi Harmon Cha, MD Abdomen/Pelvis CT 07/05/17 11:30 IMPRESSION: 1. No acute process in the abdomen or pelvis. 2. Moderate sigmoid diverticulosis without acute diverticulitis. 3. Atherosclerotic and ectatic abdominal aorta. 4. Small pericardial effusion and/or pericardial thickening. D/ / 07/05/2017 13:00:21 Jeanine Tan / yohan Interpreting Provider: Jeanine Tan Laboratory Tests 06/15/17 06/15/17 06/17/17 19:08 21:20 09:03 Hgb 12.6 11.7 10.8 L Creatinine Troponin I Stool Occult Blood 07/05/17 07/05/17 07/05/17 11:29 11:52 11:52 Hgb Creatinine 0.66 Troponin I < 0.03 Stool Occult Blood Positive A 07/06/17 04:13 Hgb 7.8 L Creatinine Troponin I Stool Occult Blood Active Medications Acetaminophen (Tylenol) 650 mg PO Q6HR PRN PRN Reason: Fever/pain 1-4 Stop: 01/05/18 00:21 Aspirin (Aspirin) 81 mg PO DAILY MAG Stop: 01/05/18 09:01 Last Admin: 07/06/17 09:17 Dose: 81 mg Atorvastatin Calcium (Lipitor) 40 mg PO HS MAG Stop: 01/04/18 21:01 Last Admin: 07/05/17 21:17 Dose: 40 mg Budesonide/Formoterol Fumarate (Symbicort) 2 puff IH BIDR MAG Stop: 01/04/18 22:01 Escitalopram Oxalate (Lexapro) 20 mg PO DAILY MAG Stop: 01/05/18 09:01 Last Admin: 07/06/17 09:17 Dose: 20 mg Lactated Ringer's (Lactated Ringers) 1,000 mls @ 50 mls/hr IVC .Q20H MAG Stop: 01/04/18 15:16 Last Infusion: 07/05/17 15:29 Dose: 50 mls/hr Pantoprazole Sodium 80 mg/ (Sodium Chloride) 250 mls @ 25 mls/hr IVC .Q10H [facility] Stop: 01/04/18 23:16 Last Admin: 07/06/17 00:10 Dose: 25 mls/hr Metoprolol Succinate (Toprol Xl) 12.5 mg PO DAILY MAG Stop: 01/05/18 09:01 Last Admin: 07/06/17 09:17 Dose: 12.5 mg Nitroglycerin (Nitroglycerin) 0.4 mg SL Q5MIN [facility] Stop: 01/04/18 19:31 Oxycodone HCl (Roxicodone) 5 mg PO Q6HR PRN PRN Reason: Pain>4 Stop: 01/05/18 00:21 Last Admin: 07/06/17 00:33 Dose: 5 mg Ticagrelor (Brilinta) 90 mg PO BID [facility] Stop: 01/04/18 21:01 Last Admin: 07/06/17 09:17 Dose: 90 mg - Imaging and Cardiology Chest Xray: report reviewed Echo: report reviewed Cardiac cath: report reviewed - EKG Interpretation EKG results cardiology: personally reviewed (ECG with SR, ST deviations noted in leads II, III, and aVF.), other (Telemetry reviewed with average HR previous 12 hours noted to be 72, sinus rhythm. PVCs and PACs noted.) Consult Discharge Plan - Plan Referrals: Suzy Esquivel, SANDWICH WRAPPER [Primary Care Provider] - <Cr Patel - Last Filed: 07/06/17 22:39> Date of Encounter: 07/06/17 Time of Encounter: 20:30 - Attending Attestation I have personally performed a face to face evaluation on this patient. I have reviewed and agree with the care plan. History and Exam by me shows: !. Acute GI bleed, had endoscopy, bleeding controlled 2. CAD: severe single vessel disease, post emergent PCI with GERMAIN proximal and mid RCA 06/15/2017, will need to continue dual antiplatelet tx. uninteruppted. 3. BEH - controlled on current meds. Assessment and Plan Discussion w patient/family: The assessment and plan as outlined above was discussed with the patient and/or family members who expressed understanding and agreement. All questions were answered. Thank you for involving us in the care of your patient. Please call with any questions. History of Present Illness History of present illness: Ms. Gates is a 66 year old female All Systems Review: A 10-system review of systems was performed and is negative for pertinent findings except as documented above in the HPI. Physical Examination Vital Signs, Last 4 Hours Temp Pulse Resp BP Pulse Ox 07/06/17 19:51 98.7 F 75 16 97/53 100 Results 07/06/17 17:42 07/05/17 11:52 Lab Results 07/05/17 07/06/17 07/06/17 22:38 04:13 04:13 WBC 8.0 7.6 Hgb 8.5 L 7.8 L Hct 26.3 L 24.6 L Plt Count 472 H 451 H INR 1.1 APTT 32.8 07/06/17 07/06/17 10:04 17:42 WBC Hgb 8.3 L 7.7 L Hct 25.4 L 23.8 L Plt Count INR APTT
[2017-07-06 10:44] LABS: Hematocrit 25.4 % (35.3-44.9); Hemoglobin 8.3 g/dL (11.5-15.4)
--- NOTE | 2017-07-06 13:07 | Anesthesia Evaluation Post Op ---
Date of Encounter: 07/06/17 Time of Encounter: 09:00 - Vital Signs Vital Signs: Vital Signs/O2 Sat/Glucose, Most Current Temp Pulse Resp BP Pulse Ox 07/06/17 13:00 97.4 F L 70 16 103/67 97 07/06/17 10:06 75 16 97/51 99 07/06/17 09:15 98.3 F 67 16 108/58 98 - Lungs Lungs: Clear Ascult./Percussion - Airway Airway: Non-obstructed - Cardiovascular Regular Rate, Baseline Rhythm - Mental Status Mental Status: Alert & Oriented, Answers Appropriately - Pain Pain Scale: 0 Pain Scale used: Numeric (1 - 10) - Nausea Vomiting Nausea Vomiting: Not Present - Hydration Hydration: NPO, Has not voided - Discharge PostOp Status: Transfer Patient to floor Anes Supervising Prov Stmt: Pt seen/evaluated, VSS and pt has met criteria for discharge to floor. - MD Elizabeth
[2017-07-06] MEDS: Budesonide/Formoterol 80/4.5 MDI IH SCH (14:04)
[2017-07-06] MEDS: Nitroglycerin 0.4 MG TAB.SUBL SL SCH ×2 (14:04→19:47)
[2017-07-06 17:54] LABS: Hematocrit 23.8 % (35.3-44.9); Hemoglobin 7.7 g/dL (11.5-15.4)
[2017-07-07 05:30] LABS: BUN/Creatinine Ratio 13 (6-26); Blood Urea Nitrogen 9 mg/dL (8-23); Calcium 7.9 mg/dL (8.6-10.3); Carbon Dioxide 27 mEq/L (23-29); Chloride 103 mEq/L (98-107); Glucose 86 mg/dL (70-105); Osmolality,Calculated 276 (280-300); Potassium 3.8 mEq/L (3.5-5.1); Sodium 134 mEq/L (136-145); eGFR For African Americans > 60 (> 60); eGFR For Non-African Americans > 60 (> 60)
[2017-07-07 05:38] LABS: Basophils % 0.7 %; Eosinophils # 0.2 K/mcL (0.0-0.6); Eosinophils % 2.7 %; Hematocrit 20.3 % (35.3-44.9); Hemoglobin 6.7 g/dL (11.5-15.4); Immature Granulocytes % 0.2 % (0-4); Lymphocytes # 2.1 K/mcL (0.6-4.6); Lymphocytes % 38.1 %; Mean Corpuscular Hemoglobin 30.5 pg (28.0-33.3); Mean Corpuscular Volume 92.3 fL (83.0-100.0); Mean Platelet Volume 9.9 fL (9.4-12.4); Monocytes # 0.6 K/mcL (0.0-1.3); Monocytes % 10.2 %; Neutrophils # 2.6 K/mcL (1.6-8.9); Platelet Count 349 K/mcL (140-400); Red Cell Distribution Width 12.7 % (11.5-14.5); Segmented Neutrophils % 48.1 %
[2017-07-07] MEDS: Budesonide/Formoterol 80/4.5 MDI IH SCH (07:14)
[2017-07-07] MEDS: *HR* Ticagrelor 90 MG TABLET PO SCH ×2 (08:51→19:58)
[2017-07-07] MEDS: Aspirin 81 MG TAB.CHEW PO SCH (08:51)
[2017-07-07] MEDS: Metoprolol XL (24 HR) Succ 25 MG TAB.ER.24H PO SCH (08:52)
[2017-07-07] MEDS ORDERED: 0.9 % Sodium Chloride 250 ML ONE ×2 (11:33→15:51)
[2017-07-07] MEDS ORDERED: Lidocaine -MPF 1% 5 ML AMPUL INFILT ONE (12:57)
--- NOTE | 2017-07-07 13:18 | Event Note ---
Date of Encounter: 07/07/17 Time of Encounter: 09:30 Pt awake and sitting on the side of thebed. She denies any dizziness, shortness of breath or abdominal pain. She denies any nausea or vomiting. She denies any bright red rectal bleeding, or BMs following EGD/colonoscopy. Hgb is 6.7 will transfuse 2 units PRBCs. If Hgb stable in the am may be ready for discharge.
[2017-07-07] MEDS ORDERED: Nitroglycerin 0.4 MG TAB.SUBL SL PRN (13:24)
--- NOTE | 2017-07-07 16:15 | Electrocardiograph Report ---
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
[2017-07-07] MEDS: Pantoprazole 40 MG VIAL IVP SCH (19:58)
--- NOTE | 2017-07-07 21:55 | Internal Med Progress Note ---
Date of Encounter: 07/07/17 Time of Encounter: 14:53 - Assessment and plan (1) GI bleed Current Visit: Yes Status: Acute Assessment and plan: EGD done today, GI following, appreciate recommendations. Cardiology consulted in regards to DAPT use in patient since she is having s/s of GIB but is also high risk for HI since she had one 3 weeks ago. H&H 6.7 she is being transfused, if stable can discharge tomorrow morning. Qualifiers: GI bleed type/associated pathology: unspecified gastrointestinal hemorrhage type Qualified Code(s): K92.2 - Gastrointestinal hemorrhage, unspecified (2) Hypertension Current Visit: No Status: Acute Qualifiers: Hypertension type: essential hypertension Qualified Code(s): I10 - Essential (primary) hypertension (3) Hyperlipidemia Current Visit: No Status: Acute Qualifiers: Hyperlipidemia type: unspecified Qualified Code(s): E78.5 - Hyperlipidemia , unspecified - Subjective Interval history: Patient presented for BRBPR for past 3 days, had recent HI 3 weeks ago requiring catheterization and DAPT. She denies any recent trauma, red foods. FOBT + here, has been hemodynamically stable. Her baseline hemoglobin appears to be 10-11 in the past month. On admission yesterday her level was 8.8, trending she is now 7.8. She denies chest pain, shortness of breath, n/v. She admits to BRBPR. Endoscopy done earlier this morning results are pending. Cardiology was consulted in regards to DAPT use since she is high risk of cardiac events but also GIB. EGD done 07/07/16, tolerated well. Hemoglobin 6.7. - Constitutional Vitals: Temp Pulse Resp BP Pulse Ox 99.3 F 59 15 123/65 97 07/07/17 20:14 07/07/17 20:14 07/07/17 20:14 07/07/17 20:14 07/07/17 20:14 Exam: Gen: NAD, AAOx3 CVS: RRR Lungs: CTAB Abd: soft, NT/ND Internal Medicine: Result - Labs CBC & Chem 7: 07/07/17 04:25 07/07/17 04:25 Labs: Short CBC 07/07/17 Range/Units 04:25 WBC 5.5 (4.3-11.1) K/mcL Hgb 6.7 L (11.5-15.4) g/dL Hct 20.3 L (35.3-44.9) % Plt Count 349 (140-400) K/mcL Neutrophils # 2.6 (1.6-8.9) K/mcL BMP 07/07/17 04:25 Sodium 134 L Potassium 3.8 Chloride 103 Carbon Dioxide 27 BUN 9 Creatinine 0.70 Glucose 86 Calcium 7.9 L - ABG Interpretation ABG results: PT/INR, D-dimer PT 11.9 Seconds (9.4-12.1) 07/06/17 04:13 - VTE Documentation of Mechanical Device: Intermittent pneumatic compression device Consult Discharge Plan - Plan Referrals: Suzy Esquivle, THEATER USHER [Primary Care Provider] -
[2017-07-08] MEDS: Pantoprazole 40 MG VIAL IVP SCH (05:52)
[2017-07-08 06:41] LABS: Basophils # 0.1 K/mcL (0.0-0.2); Basophils % 0.8 %; Eosinophils # 0.2 K/mcL (0.0-0.6); Eosinophils % 3.1 %; Hematocrit 27.2 % (35.3-44.9); Hemoglobin 9.3 g/dL (11.5-15.4); Immature Granulocytes % 0.5 % (0-4); Lymphocytes # 2.5 K/mcL (0.6-4.6); Lymphocytes % 37.7 %; Mean Corpuscular HGB Conc 34.2 g/dL (31.6-35.5); Mean Corpuscular Hemoglobin 30.4 pg (28.0-33.3); Mean Corpuscular Volume 88.9 fL (83.0-100.0); Mean Platelet Volume 9.7 fL (9.4-12.4); Monocytes # 0.8 K/mcL (0.0-1.3); Monocytes % 12.1 %; Platelet Count 384 K/mcL (140-400); Red Blood Count 3.06 M/mcL (3.82-4.97); Red Cell Distribution Width 14.3 % (11.5-14.5); Segmented Neutrophils % 45.8 %
[2017-07-08 06:46] VITALS: BP 131/78
[2017-07-08 06:56] LABS: BUN/Creatinine Ratio 14 (6-26); Blood Urea Nitrogen 10 mg/dL (8-23); Calcium 8.5 mg/dL (8.6-10.3); Carbon Dioxide 29 mEq/L (23-29); Chloride 100 mEq/L (98-107); Glucose 87 mg/dL (70-105); Osmolality,Calculated 274 (280-300); Sodium 133 mEq/L (136-145); eGFR For African Americans > 60 (> 60); eGFR For Non-African Americans > 60 (> 60)
[2017-07-08] MEDS: Aspirin 81 MG TAB.CHEW PO SCH (07:27)
[2017-07-08] MEDS: *HR* Ticagrelor 90 MG TABLET PO SCH (07:27)
--- NOTE | 2017-07-08 07:59 | Discharge Summary ---
Date of Encounter: 07/08/17 Time of Encounter: 10:25 - Discharge Diagnosis (1) GI bleed Priority: Primary Status: Acute Qualifiers: GI bleed type/associated pathology: unspecified gastrointestinal hemorrhage type Qualified Code(s): K92.2 - Gastrointestinal hemorrhage, unspecified (2) Hypertension Priority: Secondary Status: Acute Qualifiers: Hypertension type: essential hypertension Qualified Code(s): I10 - Essential (primary) hypertension (3) Hyperlipidemia Priority: Secondary Status: Acute Qualifiers: Hyperlipidemia type: unspecified Qualified Code(s): E78.5 - Hyperlipidemia , unspecified - Discharge Medications Prescriptions: Omeprazole [PriLOSEC] 40 mg PO DAILY #30 cap Home Medications: Escitalopram [Lexapro] 20 mg PO DAILY 06/15/17 [History] Aspirin 81 mg PO DAILY #30 tab.chew 06/17/17 [Rx] Atorvastatin [Lipitor] 40 mg PO HS #30 tablet 06/17/17 [Rx] Metoprolol XL (24 HR) Succ [Toprol Xl] 12.5 mg PO DAILY #15 tab.er.24h 06/17/17 [Rx] Nitroglycerin 0.4 mg SL Q5MIN #30 tab.subl 06/17/17 [Rx] Ticagrelor [Brilinta] 90 mg PO BID #60 tablet 06/17/17 [Rx] Fluticasone/Salmeterol [Advair 250-50 Diskus] 1 puff IH BID 07/05/17 [History] Ranitidine HCl [Heartburn Relief] 150 mg PO DAILY 07/05/17 [History] Omeprazole [PriLOSEC] 40 mg PO DAILY #30 cap 07/08/17 [Rx] Pantoprazole [Protonix] 40 mg IVP Q12HR vial 07/08/17 [Rx] Allergies/Adverse Reactions: 3 Allergy/AdvReac Type Severity Reaction Status Date / Time No Known Allergies Allergy Verified 07/05/17 11:08 Date of admission: 07/05/17 15:06 Primary care physician: Suzy Esquivel CNP Consults: 07/07/17 12:58 Consult to Invasive Line Access Team [CONS] Routine Reason for Consult: Picc Line Insertion Line Type: EPIV Discharging clinician: María Jarrell - Patient Status Disposition: Home, Self-Care Condition: Fair Functional capacity at discharge: independent ambulation Overall status at discharge: patient is back to baseline - Discharge Instructions Follow Up With: Suzy Esquivel CNP [Primary Care Provider] - 07/13/17 1:00 pm - Diet and Activity Activity: increase activity as tolerated Hospital course: Ms. Gates is a 66 year old female with the recent UT status post cardiac catheter with stenting. Patient had Inferior ST elevation UT; S/P Proximal and Distal RCA stenting. On ASA, received loading dose 180 mg Brilinta hortensia-PCI, on maintenance dose of Brilinta 90mg daily along with aspirin daily. Per patient she notice red blood per rectum many episode several days ago. A CBC done next day as outpatient but could not be done and yesterday she noticed 1 more episode of bleeding per rectum since then no more bleeding per rectum .On day of admission she felt very weak and tired and came to the ER and was found to have a low hemoglobin. Denies any abdominal pain no chest pain or shortness of breath. She was started on Protonix IV BID, GI was consulted, H&H were trended. Cardiology was consulted in regards to dual antiplatet therapy. Patient had STEMI 06/15/17 and so they were continued since she is high risk. She had EGD and tolerated procedure well. Official read was pending but patient was stable. Her hemoglobin did drop a day later to 6.7 and she was transfused 2 units of PRBC. she remained hemodynamically stable. Repeat hemoglobin one day later was 9.3. She denied CP, SOB, N/V, diaphoresis, dizziness. She was discharged home in stable condition with Omeprazole 40 mg daily. - Time Spent with Patient Total time spent providing and/or coordinating discharge services: - Constitutional Vitals: Temp Pulse Resp BP Pulse Ox 98.7 F 60 14 131/78 97 07/08/17 06:45 07/08/17 06:45 07/08/17 06:45 07/08/17 06:45 07/08/17 06:45 - Head Head exam: Present: atraumatic, normocephalic - Eye Eye exam: Present: PERRL, conjuntiva pink, sclera anicteric Pupils: Present: PERRL - Neck Neck exam general surgery: Present: supple, trachea midline. Absent: lymphadenopathy - Respiratory Respiratory exam: Present: CTAB. Absent: accessory muscle use, rales, rhonchi, wheezes - Cardiovascular Cardiovascular exam: Present: RRR, +S1, +S2. Absent: diastolic murmur, gallop, rubs, systolic murmur - GI/Abdominal GI/Abdominal exam: Present: normal bowel sounds, soft, no peritoneal signs. Absent: distended, tenderness - Extremities Exam Extremities exam: Present: warm, radial pulses palpable and symmetrical. Absent : calf tenderness, cyanotic, pedal edema - Neurological Exam Neurological exam: Present: CN II-XII intact, oriented X3, no focal deficits. Absent: pronater drift, facial droop, speech deficit - Skin Skin exam: Present: dry, intact - VTE Documentation of Mechanical Device: Intermittent pneumatic compression device
[2017-07-08] MEDS: Metoprolol XL (24 HR) Succ 25 MG TAB.ER.24H PO SCH (11:20)
== END 2017-07-08 11:19 | disposition home or self-care (01) | DRG 378 ==
LOC: EMEROO 11:00 → 3ANU 11:00
PROVIDERS: ADMIT Internal Medicine Nephrology; ATTEND Internal Medicine Nephrology
PROC: ENDOCCB (2017-07-06 08:00)